=== PATIENT | male | born 1975 | race Two or more races ===

== ENCOUNTER → 2019-12-02 | Outpatient (CLI) | payer OTHER | END | disposition home or self-care (01) | LOC: TOM 08:24 | PROVIDERS: ATTEND Urology | DX: N20.0 Calculus of kidney (principal) ==

== ENCOUNTER 2020-01-26 10:33 | Outpatient (CLI) | payer OTHER | END 2020-01-26 10:42 | disposition home or self-care (01) | LOC: LAB 10:33 | PROVIDERS: ATTEND Urology | DX: N20.0 Calculus of kidney (principal) ==

== ENCOUNTER 2020-03-14 10:09 | Outpatient (CLI) | payer OTHER | END 2020-03-14 10:15 | disposition home or self-care (01) | LOC: LAB 10:09 | PROVIDERS: ATTEND Urology | DX: N20.0 Calculus of kidney (principal) ==

== ENCOUNTER 2020-09-12 11:20 | Outpatient (CLI) | payer OTHER | END 2020-09-12 11:31 | disposition home or self-care (01) | LOC: RAD 11:20 | PROVIDERS: ATTEND Urology | DX: K20.0 Eosinophilic esophagitis (principal) ==

== ENCOUNTER 2020-10-22 13:37 | Outpatient (CLI) | payer OTHER | END 2020-10-22 15:08 | disposition home or self-care (01) | LOC: LAB 13:37 | PROVIDERS: ATTEND Urology | DX: N20.0 Calculus of kidney (principal) ==

== ENCOUNTER 2020-10-29 12:29 | Outpatient (CLI) | payer OTHER | END 2020-10-29 12:38 | disposition home or self-care (01) | LOC: RAD 12:29 → LAB 12:29 | PROVIDERS: ATTEND Urology | DX: N20.0 Calculus of kidney (principal) ==